=== PATIENT | female | born 1985 | race Two or more races ===

== ENCOUNTER 2021-08-02 15:30 | Inpatient (IN) | payer OTHER ==
[~2021-08-02] VITALS: Ht 175.3 cm; Wt 72.6 kg
[2021-08-12] MEDS ORDERED: PRENATAL TABLE1 EAC1 PO (07:15)
== END 2021-08-14 17:03 | disposition home or self-care (01) | DRG 807 ==
LOC: OB/GYN 08-12 07:08 → LDR 08-12 07:08 → SURG-SUITE 08-12 12:48 → OB/GYN 08-12 15:00
PROVIDERS: ADMIT Obstetrics & Gynecology; ATTEND Obstetrics & Gynecology
PROC: 10E0XZZ Delivery of Products of Conception, External Approach (ICD-10-PCS; principal; 2021-08-12)
PROC: 0W8NXZZ Division of Female Perineum, External Approach (ICD-10-PCS; 2021-08-12)
PROC: 4A1HXFZ Monitoring of Products of Conception, Cardiac Rhythm, External Approach (ICD-10-PCS; 2021-08-12)
DX: O99.824 Streptococcus B carrier state complicating childbirth (principal); Z37.0 Single live birth; Z3A.39 39 weeks gestation of pregnancy; Z20.822 Contact with and (suspected) exposure to COVID-19